=== PATIENT | female | born 2005 | race Caucasian/White ===

== ENCOUNTER 2024-10-19 11:41 | Emergency (ER) | payer OTHER ==
[~2024-10-19] VITALS: Ht 162.6 cm; Wt 72.0 kg
[2024-10-19 11:44] VITALS: O2SAT 98
[2024-10-19 12:55] LABS: BASOPHILS % 0.4 % (0.0-2.0); DIFFERENTIAL COMMENT 0; EOSINOPHILS % 1.5 % (0.0-5.0); HEMATOCRIT. 33.4 % (36.0-48.0); HEMOGLOBIN. 10.8 g/dL (12.0-16.0); LYMPHOCYTES % 18.2 % (20.0-50.0); MEAN CORPUSCULAR HEMOGLOBIN 25.8 pg (28.0-32.0); MEAN CORPUSCULAR HGB CONC 32.4 g/dL (31.0-37.0); MEAN CORPUSCULAR VOLUME 79.4 fL (81.0-99.0); MEAN PLATELET VOLUME 8.2 fl (7.4-10.4); MONOCYTES % 7.2 % (2.0-8.0); NEUTROPHILS % 72.7 % (40.0-76.0); PLATELET 397 x1000/uL (130-400); RED CELL DISTRIBUTION WIDTH 14.7 % (11.6-14.6); WHITE BLOOD COUNT 13.7 x1000/uL (4.5-11.0)
[2024-10-19] MEDS: SODIUM CHLORIDE 0.9% 1,000 ML IV ONE (12:58)
[2024-10-19 13:07] LABS: PROTHROMBIN TIME 10.5 sec (9.6-11.0)
[2024-10-19 13:45] LABS: CHLORIDE 109 mEq/L (98-107); POTASSIUM 3.5 mEq/L (3.5-5.1); SODIUM 141 mEq/L (136-145)
[2024-10-19 13:46] LABS: CALCIUM 8.9 mg/dL (8.7-10.4); CARBON DIOXIDE 23 mEq/L (21-32)
[2024-10-19 13:49] LABS: HCG SCREEN NEGATIVE
[2024-10-19 13:51] LABS: CREATININE 0.6 mg/dL (0.6-1.0); GLUCOSE 106 mg/dL (70-105); UREA NITROGEN BLOOD 9 mg/dL (9-23)
[2024-10-19 13:53] LABS: ALANINE AMINOTRANSFERASE 12 IU/L (10-49); ALBUMIN 4.2 g/dL (3.2-4.8); ASPARTATE AMINOTRANSFERASE 17 IU/L (<34); BILIRUBIN DIRECT < 0.1 mg/dL (<=3.0); BILIRUBIN TOTAL 0.2 mg/dL (0.1-1.0)
[2024-10-19 13:55] LABS: THYROID STIMULATING HORMONE 2.05 uIU/mL (0.55-4.78)
[2024-10-19 13:57] LABS: TROPONIN I HIGH SENSITIVITY < 4 ng/L (3.0-34)
[2024-10-19 15:07] VITALS: BP 112/74; PULSE 76; RESP 19; TEMP 36.8; O2SAT 99
== END 2024-10-19 15:13 | disposition home or self-care (01) ==
LOC: ER 11:41
DX: R00.0 Tachycardia, unspecified (principal); Z79.899 Other long term (current) drug therapy
CPT/HCPCS: 99284; 96360; 80076; 80048; 84703; 83690; 84443; 85025; 85610; 84484; 36415; 93005; J7030